=== PATIENT | male | born 1990 | race African-American/Black ===

== ENCOUNTER 2018-03-10 19:05 | Emergency (ER) | payer MEDICAID ==
[~2018-03-10] VITALS: Ht 172.7 cm; Wt 63.5 kg
[2018-03-10 19:08] VITALS: BP 137/92
== END 2018-03-10 20:16 | disposition left against medical advice (07) ==
LOC: ER 19:05
DX: F43.9 Reaction to severe stress, unspecified (principal); Z53.21 Procedure and treatment not carried out due to patient leaving prior to being seen by health care provider